=== PATIENT | male | born 1965 | race Caucasian/White ===

== ENCOUNTER 2023-06-25 11:32 | Emergency (ER) | payer MEDICARE, SELFPAY ==
[2023-06-25 12:15] LABS: Basophils # 0.1 10^3/uL (0.0-0.1); Basophils % 0.7 %; Eosinophils # 0.4 10^3/uL (0.0-0.8); Lymphocytes # 1.8 10^3/uL (0.8-4.8); Lymphocytes % 23.9 %; Mean Corpuscular HGB Conc 31.5 g/dL (30-55); Mean Corpuscular Hemoglobin 27.1 pg (27-33); Mean Platelet Volume 9.3 fL (7.4-10.4); Monocytes # 0.4 10^3/uL (0.2-0.9); Neutrophils # 4.74 10^3/uL (1.8-7.7); Neutrophils % 64.3 %; Nucleated Red Blood Cells % 0 %; Platelet Count 275 10^3/cmm (157-399); Red Blood Count 4.65 10^6/uL (3.85-5.65); Red Cell Distribution Width 14.4 % (12.1-15.1); White Blood Count 7.37 10^3/uL (3.29-11.43)
[2023-06-25 12:34] LABS: Alanine Aminotransferase 12 U/L (0-41); Albumin Level 4.1 g/dL (3.5-5.2); Alkaline Phosphatase 99 U/L (40-130); Anion Gap 13.6 (5-19); Aspartate Amino Transferase 18 U/L (0-40); Blood Urea Nitrogen 16 mg/dL (6-20); Carbon Dioxide 25 mmol/L (22-29); Chloride 103 mmol/L (98-107); Globulin 2.8 g/dL (1.3-4.6); Glomerular Filtration Rate 98.9 mL/min (90-130); Glucose 101 mg/dL (65-115); Osmolality Calculated 287 mOsm/kg (285-295); Potassium 3.6 mmol/L (3.5-5.1); Sodium 138 mmol/L (136-145); Total Bilirubin 0.2 mg/dL (0.15-1.2); Total Protein 6.9 g/dL (6.6-8.7)
== END 2023-06-25 12:07 | disposition left against medical advice (07) ==
PROVIDERS: Emergency Medicine; Emergency Provider Family Medicine; PCP Family Medicine
DX: Z53.21 Procedure and treatment not carried out due to patient leaving prior to being seen by health care provider (principal)
CPT/HCPCS: 36415; 80053; 85025; 99285

== ENCOUNTER → 2023-07-27 12:41 | Outpatient (BNVA) | payer MEDICARE, SELFPAY | PROVIDERS: PCP Family Medicine; Visit Provider Dermatology | DX: D48.5 Neoplasm of uncertain behavior of skin (principal); L57.0 Actinic keratosis; D69.2 Other nonthrombocytopenic purpura; L28.1 Prurigo nodularis; Z85.828 Personal history of other malignant neoplasm of skin | CPT/HCPCS: 11102; 17000; 99203 ==

== ENCOUNTER 2023-08-10 12:02 | Outpatient (CLI) | payer MEDICARE, SELFPAY ==
--- NOTE | 2023-08-10 12:06 | MR_ITS ---
WS: [id number] MRI BRAIN WITHOUT CONTRAST HISTORY: TIA COMPARISON: None available. TECHNIQUE: Diffusion imaging, multiplanar T1, T2 and FLAIR imaging obtained. No evidence for acute infarct or hemorrhage. Hernandez-white matter differentiation is normal. Minimal atrophy and small vessel ischemic disease. No large territory infarct. Mild bilateral hippoca mpal atrophy. Ventricles and extra-axial spaces are normal. No inferior displacement of cerebellar tonsils. The sella turcica and pituitary gland are unremarkabl e. Dural venous sinuses and lac vieux of Nath demonstrate no abnormality on this unenhanced studies. Paranasal sinuses: Heterogeneous mucoperiosteal thickening throughout the RIGHT maxillary sinus. Ther e is a small mucous retention cyst in the LEFT maxillary sinus. Small amount of mucus debris and rete ntion in the posterior nasopharynx. Mastoid air cells: Normal. Calvarium and scalp: Intact. IMPRESSION: 1. Normal diffusion imaging. No acute infarct. 2. Mild cerebral atrophy and small vessel ischemic disease. 3. Inspissated heterogeneous secretions in the RIGHT maxillary sinus.
--- NOTE | 2023-08-10 12:06 | USCV_ITS ---
José Mondragon Age: 58 Gender: M : 1965 Exam Date: 08/10/2023 13:10 Ordering Phys: To Osorio MD Technologist: MAEGAN [place] [facility] [place]: AIMEE BP: 136 / 85 HR: 68 Rhythm: Sinus Technical Quality: Adequate MEASUREMENTS (Male / Female) Normal Values 2D ECHO LV Diastolic Diameter PLAX 3.6 cm 4.2 - 5.9 / 3.9 - 5.3 cm IVS Diastolic Thickness 1.9 cm 0.6 - 1.0 / 0.6 - 0.9 cm IVS Systolic Thickness 2.9 cm LVPW Diastolic Thickness 2.6 cm 0.6 - 1.0 / 0.6 - 0.9 cm LVPW Systolic Thickness 3.4 cm LVOT Diameter 2.0 cm LV Ejection Fraction 2D Teich 80.8 % LV Ejection Fraction MOD 2C 59.9 % LV Ejection Fraction 2C AL 61.8 % LA Diameter 3.5 cm RA Systolic Volume 4C AL 36.6 ml RA Systolic Volume 4C MOD 35.8 ml Aorta at Sinotubular Diameter 2.6 cm IVC Diameter 1.4 cm M-MODE LA Ao Ratio MM 1.2 AV Cusp Separation MM 1.7 cm DOPPLER AV Peak Velocity 159.0 cm/s LVOT Peak Velocity 129.0 cm/s AV Area Cont Eq vti 2.6 cm squared AV Area Cont Eq pk 2.6 cm squared MV Peak Velocity 91.0 cm/s MV Area PHT 2.7 cm squared Mitral E to A Ratio 0.9 TR Peak Velocity 179.0 cm/s TR Peak Gradient 12.8 mmHg TR Mean Velocity 158.0 cm/s TR Mean Gradient 10.3 mmHg TR Velocity Time Integral 51.7 cm TV Peak E Velocity 43.0 cm/s Right Atrial Pressure 3.0 mmHg Pulmonary Artery Systolic Pressu 15.8 mmHg PV Peak Velocity 140.0 cm/s RV Ejection Time 0.3 s FINDINGS Left Ventricle Left ventricle is normal in size. LV systolic function is normal with EF of 60 to 65%. No regional wall motion abnormalities are seen. Moderate to severe left ventricular hypertrophy. Grade 1 diastolic dysfunction. Right Ventricle Normal in size and function Right Atrium Normal in size Left Atrium Normal in size Mitral Valve Structurally normal mitral valve. Mild mitral regurgitation. Aortic Valve Structurally normal aortic valve. No significant stenosis or regurgitation. Tricuspid Valve Insufficient TR jet to evaluate RVSP. Pulmonic Valve Not well-visualized. Pericardium Normal Aorta Normal in size IVC Appears to be normal. CONCLUSIONS LV systolic function is normal with EF of 60 to 65%. Moderate to severe left ventricular hypertrophy. Grade 1 diastolic dysfunction Mild mitral regurgitation. No comparison studies are available Konstantin Flalon MD (Electronically Signed) Final Date: 21 August 2023 19:45 S
== END 2023-08-10 12:03 | disposition home or self-care (01) ==
LOC: RAD 12:03
PROVIDERS: PCP Family Medicine; Visit Provider Family Medicine
DX: I63.9 Cerebral infarction, unspecified (principal); G31.9 Degenerative disease of nervous system, unspecified; I67.89 Other cerebrovascular disease; I51.7 Cardiomegaly
CPT/HCPCS: 70551; 93306

== ENCOUNTER → 2023-09-28 08:23 | Outpatient (BNVA) | payer MEDICARE, SELFPAY | PROVIDERS: PCP Family Medicine; Visit Provider Dermatology | DX: L21.8 Other seborrheic dermatitis (principal); L82.1 Other seborrheic keratosis; C44.629 Squamous cell carcinoma of skin of left upper limb, including shoulder; D48.5 Neoplasm of uncertain behavior of skin; L57.0 Actinic keratosis | CPT/HCPCS: 11102; 13132; 17000; 17311; 99214 ==

== ENCOUNTER 2023-10-19 04:36 | Emergency (ER) | payer MEDICARE, SELFPAY ==
[2023-10-19 04:41] VITALS: BP 177/81; PULSE 65; RESP 20; TEMP 36.8; O2SAT 97; BMI 25.8
--- NOTE | 2023-10-19 04:49 | ED_ITS ---
HPI - Extremity Problem General: Chief complaint: Extremity Injury, Upper Stated complaint: Rt Arm Injury Time Seen by Provider: 10/19/23 04:46 History of Present Illness: Patient presents to the ER with complaints of right arm/wrist pain. Patient states he got up and was sitting on the side of the bed when he fell back asleep sitting up and then fell over and fell off the bed. Patient has a large hematoma on his dorsal side of his ulnar area of his wrist. Patient has decreased range of motion secondary to pain. Patient has no other complaints at this time. There was no loss of consciousness or head head trauma. Review of Systems General: Reports: 10 or more systems reviewed and unremarkable except in HPI and below PFSH ED PFSH: Family History Other Congestive heart failure (CHF) Diabetes mellitus, type 2 Stroke Physical Exam Const: COMMON NORMALS: no acute distress, average body habitus, patient karoline ented x3, no limitations, healthy appearing, alert and well nourished HENMT: COMMON NORMALS: normocephalic, atraumatic, hearing grossly normal belkys aterally, external ears normal, Normal external nose present and moist oral mucous membranes HEAD & SCALP: normocephalic and atraumatic NOSE: Normal external nose present EXTERNAL EAR: Yes external ears normal Eye: COMMON NORMALS: Equal, round and reactive pupils present, EOMs intact bilaterally, conjunctivae normal and no scleral icterus CONJUNCTIVA: Yes conjunctivae normal PUPIL: Yes Equal, round and reactive pupils present Neck/C-Spine: COMMON NORMALS: no JVD Chest: COMMONS NORMALS: normal inspection of the chest and normal palpation of entire chest wall Resp: COMMON NORMALS: normal respiratory effort, No retractions, No use of accessory muscles and clear to auscultation bilaterally AUSCULTATION: clear to auscultation bilaterally Cardio: COMMON NORMALS: no JVD, regular rate, regular rhythm, S1 normal heart sound present, S2 normal heart sound present, No gallops present (Cardio), No clicks present (Cardio), No murmurs present (Cardio) and No rub (Cardio) RATE: regular rate RHYTHM: regular rhythm HEART SOUNDS: S1 normal heart sound present and S2 normal heart sound present GI: COMMON NORMALS: Normal to inspection, nondistended, normoactive bowel sounds present, Soft to palpation, non-tender, No hepatosplenomegaly present and no masses PALPATION: Yes Soft to palpation and Yes No hepatosplenomegaly present Extremity: NARRATIVE EXTREMITY EXAM: Decreased range of motion secondary to pain of right wrist joint, moderate hematoma on the dorsal distal aspect of the right forearm. Otherwise negative exam. Neuro: COMMON NORMALS: patient oriented x3 SENSORIUM/ORIENTATION: Yes alert Course Vital Signs: Vital signs: Vital Signs Temperature 98.2 F 10/19/23 06:42 Pulse Rate 70 10/19/23 06:42 Respiratory Rate 16 10/19/23 06:42 Blood Pressure 165/99 10/19/23 06:42 Pulse Oximetry 96 10/19/23 06:42 Oxygen Delivery Me thod Room Air 10/19/23 04:41 MDM - Extremity (Nontraumatic) Medical Decision Making Patient fell out of bed this morning and hurt his right wrist. He has a hematoma on it. X-ray was obtained which showed no acute abnormality. Patient be discharged home. Differential Diagnosis Unlikely herpes zoster, gout, cellulitis, superficial thrombophlebitis, deep venous thrombosis of upper extremity, lower extremity edema or deep vein thrombosis of lower extremity Medical Records I reviewed the patient's medical records. Lab Data I reviewed the patient's lab results. Radiology Impressions Wrist X-Ray 10/19/23 04:49 IMPRESSION: Healed fracture. No acute abnormality. All radiology interpretation(s) finalized by discharge Discharge Plan Discharge Patient Disposition: Home Clinical Impression: Contusion of dorsum of wrist Fall Qualifiers: Encounter type: initial encounter Qualified Code(s): W19.XXXA - Unspecified fall, initial encounter Condition: Stable Prescriptions: No Action aripiprazole 2 mg tablet 2 mg PO DAILY clonazepam 0.5 mg tablet 0.5 mg PO TID duloxetine 60 mg capsule,delayed release(DR/EC) 120 mg PO DAILY losartan 50 mg tablet 50 mg PO DAILY Discharge Orders: Discharge ED (Routine); Ordered 10/19/23 Ordered By: Marshall Garcia Referrals: To Osorio MD [Primary Care Provider] - 1 week Patient Instructions: Contusion in Adults (ED), Hematoma (ED) Coding Level of Care Code ED Tandem Mill Operator for Perla Olivas
--- NOTE | 2023-10-19 04:49 | XRR_ITS ---
PROCEDURE INFORMATION: Exam: XR Right Wrist Exam date and time: 10/19/2023 4:54 AM Age: 58 years old Clinical indication: Injury or trauma; Fall; Other: Pain; Prior surgery; Surgery date: 6+ months; Surgery type: Wrist; Additional info: Fall pain swelling TECHNIQUE: Imaging protocol: Radiologic exam of the right wrist. Views: 3 or more views. COMPARISON: No relevant prior studies available. FINDINGS: Bones/joints: ORIF of the distal radius in anatomic alignment. Intact hardware. No acute osseous or joint abnormality. Soft tissues: Normal. Other findings: . XR/XR wrist RT min 3V* [id number] IMPRESSION: Healed fracture. No acute abnormality.
[2023-10-19] MEDS: ketorolac 30 mg/mL INJ IM (05:56)
[2023-10-19 05:57] VITALS: BP 165/99; PULSE 70; RESP 16; O2SAT 96
[2023-10-19 06:42] VITALS: BP 165/99; PULSE 70; RESP 16; TEMP 36.8; O2SAT 96
== END 2023-10-19 06:15 | disposition home or self-care (01) ==
PROVIDERS: Emergency Provider Emergency Medicine; PCP Family Medicine
DX: S60.211A Contusion of right wrist, initial encounter (principal); Z79.899 Other long term (current) drug therapy; W06.XXXA Fall from bed, initial encounter
CPT/HCPCS: 73110; 96372; 99284; J1885

== ENCOUNTER → 2023-11-04 08:43 | Outpatient (BNVA) | payer MEDICARE, SELFPAY | PROVIDERS: PCP Family Medicine; Visit Provider Dermatology | DX: L26 Exfoliative dermatitis (principal); C44.629 Squamous cell carcinoma of skin of left upper limb, including shoulder; D69.2 Other nonthrombocytopenic purpura | CPT/HCPCS: 17262; 99214 ==

== ENCOUNTER 2023-12-30 12:29 | Outpatient (CLI) | payer MEDICARE, SELFPAY ==
--- NOTE | 2023-12-30 12:38 | USCV_ITS ---
José Mondragon Age: 58 Gender: M : 1965 Exam Date: 12/30/2023 12:58 Ordering Phys: To Osorio MD Technologist: CECIL [place] [facility] [place]: Swelling Risk Factors: Previous Vascular Surgery: RIGHT LEFT BP: 155.0 / 84.00 BP: 145.0/ 79.00 0 0 Waveform Velocity (cm/s) Velocity (cm/s) Waveform Triphasic 118.4 Iliac Prox 103.7 Triphasic Triphasic 118.4 Iliac Mid 94.4 Triphasic Triphasic 148.6 Iliac Distal 128.0 Triphasic Triphasic 188.0 WIRE SAWYER 101.0 Triphasic Triphasic 104.0 SFA Prox 148.0 Triphasic Triphasic 122.0 SFA Mid 153.0 Triphasic Triphasic SFA Dist Triphasic 113.0 120.0 Triphasic 53.0 POP 72.0 Triphasic Triphasic 46.0 BACK SIZER 48.0 Triphasic Triphasic 42.0 DPA 41.0 Triphasic 0.6 LILLIAM 0.7 FINDINGS Triphasic arterial Doppler waveforms bilaterally throughout the lower extremity. Near normal Doppler flow velocities Resting LILLIAM 0.6 on the right and 0.7 on the left CONCLUSIONS Abnormal resting LILLIAM may suggest moderate peripheral artery disease. However because of the normal arterial Doppler waveforms, need to consider extrinsic compression/vasospastic conditions. Consider CT angiogram to better evaluate the arteries, if clinically indicated No similar previous studies are available for comparison Dr Moni Norton MD [facility] (Electronically Signed) Final Date: 31 December 2023 12:23 S
== END 2023-12-30 12:30 | disposition home or self-care (01) ==
LOC: RAD 12:30
PROVIDERS: PCP Family Medicine; Visit Provider Family Medicine
DX: I73.9 Peripheral vascular disease, unspecified (principal); R22.40 Localized swelling, mass and lump, unspecified lower limb
CPT/HCPCS: 93925

== ENCOUNTER 2024-01-17 07:43 | Outpatient (CLI) | payer MEDICARE, SELFPAY ==
--- NOTE | 2024-01-17 07:46 | CTR_ITS ---
PROCEDURE INFORMATION: Exam: CTA Abdominal Aorta and Bilateral Lower Extremities (Run-off) With Contrast Exam date and time: 01/17/2024 8:23 AM Age: 58 years old Clinical indication: Other: Pvd; Prior surgery; Surgery date: 6+ months; Surgery type: Bilateral feet, RT knee, back TECHNIQUE: Imaging protocol: Computed tomographic angiography of the of the abdominal aorta, pelvis and bilateral lower extremities with contrast. 3D rendering (Not supervised by radiologist): MIP and/or 3D reconstructed images were created by the technologist. Radiation optimization: All CT scans at this facility use at least one of these dose optimization techniques: automated exposure control; mA and/or kV adjustment per patient size (includes targeted exams where dose is matched to clinical indication); or iterative reconstruction. Contrast material: OMNI 350; Contrast volume: 120 ml; Contrast route: INTRAVENOUS (IV); COMPARISON: No relevant prior studies available. RADIATION DOSE METRICS: Total DLP (mGy-cm): 1684 FINDINGS: Aorta: No aortic aneurysm. No aortic dissection. Celiac trunk and mesenteric arteries: No occlusion or significant stenosis. Renal arteries: No occlusion or significant stenosis. Right iliac arteries: No occlusion or significant stenosis. Right femoral/popliteal arteries: Short segmental occlusion of the right SFA with reconstitution at the adductor canal. . The right popliteal artery is partially obscured by artifact from this patient's knee prosthesis. Right infrapopliteal arteries: No occlusion or significant stenosis. Left iliac arteries: No occlusion or significant stenosis. Left femoral/popliteal arteries: No occlusion or significant stenosis. Left infrapopliteal arteries: No occlusion or significant stenosis. Liver: No mass. Gallbladder and biliary ducts: Unremarkable. No calcified stones. No ductal dilation. Pancreas: Unremarkable. No mass. No ductal dilation. Spleen: Normal. No splenomegaly. Adrenal glands: Normal. No mass. Kidneys and ureters: Normal. No mass. Stomach and bowel: Unremarkable. No obstruction. No mucosal thickening. Appendix: No evidence of appendicitis. Urinary bladder: Unremarkable. No mass. Reproductive: Unremarkable as visualized. Intraperitoneal space: Unremarkable. No free air. No significant fluid collection. Lymph nodes: No lymphadenopathy. Bones/joints: See Right femoral/popliteal arteries finding. Posterior lower lumbar fusion. Soft tissues: Unremarkable. CT/CT angio abd aorta runof [id number] IMPRESSION: Short segmental occlusion of the right SFA with prompt reconstitution.
[2024-01-17 08:19] LABS: Blood Urea Nitrogen 23 mg/dL (8-23); Glomerular Filtration Rate 61.8 mL/min (90-130)
[2024-01-17] MEDS: iohexol 350 mg/mL 500 mL Btl (per mL) IV (08:34)
== END 2024-01-17 07:44 | disposition home or self-care (01) ==
LOC: RAD 07:43
PROVIDERS: Radiology Diagnostic Radiology; PCP Family Medicine; Visit Provider Family Medicine
DX: I74.3 Embolism and thrombosis of arteries of the lower extremities (principal); I73.9 Peripheral vascular disease, unspecified; Z98.890 Other specified postprocedural states
CPT/HCPCS: 75635; 82565; 84520

== ENCOUNTER 2024-02-13 22:06 | Inpatient (IN) | payer MEDICARE, SELFPAY ==
--- NOTE | 2024-02-13 22:07 | ECG_ITS ---
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 Measurements Intervals [place] Rate: 85 P: 48 DE: 132 QRS: 67 QRSD: 114 T: 46 QT: 366 QTc: 436 Interpretive Statements SINUS RHYTHM WITH OCCASIONAL SUPRAVENTRICULAR PREMATURE COMPLEXES MODERATE INTRAVENTRICULAR CONDUCTION DELAY [110+ ms QRS DURATION] NONSPECIFIC T-WAVE ABNORMALITY No previous ECG available for comparison Electronically Signed On 02-13-2024 22:50:06 CDT by Moni Norton M.D. [email or web address]
[2024-02-13 22:08] VITALS: BP 134/78; PULSE 85; RESP 24; TEMP 36.6; O2SAT 96; BMI 28.7
--- NOTE | 2024-02-13 22:47 | XRR_ITS ---
PROCEDURE INFORMATION: Exam: XR Chest Exam date and time: 02/13/2024 11:46 PM Age: 58 years old Clinical indication: Shortness of breath; Patient HX: C/O SOB. History of copd. TECHNIQUE: Imaging protocol: Radiologic exam of the chest. Views: 1 view. COMPARISON: CT angio abd aorta runof [id number] 01/17/2024 8:23 AM FINDINGS: Lungs: Irregular opacities in the lung bases. Pleural spaces: Unremarkable. No pleural effusion. No pneumothorax. Heart/Mediastinum: Unremarkable. No cardiomegaly. Bones/joints: Reverse ball and socket right shoulder arthroplasty. XR/XR chest 1V portable [id number] IMPRESSION: Irregular opacities in the lung bases.
[2024-02-13 23:10] LABS: Basophils # 0.1 10^3/uL (0.0-0.1); Basophils % 0.5 %; Eosinophils # 0.3 10^3/uL (0.0-0.8); Hematocrit 44.1 % (37-53); Lymphocytes # 1.5 10^3/uL (0.8-4.8); Lymphocytes % 10.5 %; Mean Corpuscular HGB Conc 27.9 g/dL (30-55); Mean Corpuscular Hemoglobin 21.7 pg (27-33); Mean Corpuscular Volume 77.6 fl (82-101); Mean Platelet Volume 9.6 fL (7.4-10.4); Monocytes # 0.5 10^3/uL (0.2-0.9); Monocytes % 3.5 %; Neutrophils # 12.14 10^3/uL (1.8-7.7); Nucleated Red Blood Cells % 0 %; Platelet Count 274 10^3/cmm (157-399); Red Blood Count 5.68 10^6/uL (3.85-5.65); Red Cell Distribution Width 18.7 % (12.1-15.1); White Blood Count 14.62 10^3/uL (3.29-11.43)
[2024-02-13 23:26] LABS: Alanine Aminotransferase 30 U/L (0-41); Albumin Level 3.9 g/dL (3.5-5.2); Alkaline Phosphatase 73 U/L (40-130); Anion Gap 13.2 (5-19); Aspartate Amino Transferase 20 U/L (0-40); Blood Urea Nitrogen 17 mg/dL (8-23); Calcium 8.7 mg/dL (8.5-10.5); Carbon Dioxide 22 mmol/L (22-29); Chloride 103 mmol/L (98-107); Creatinine Clr Calc Pharmacy 88.9858; Globulin 2.8 g/dL (1.3-4.6); Glomerular Filtration Rate 76.2 mL/min (90-130); Glucose 123 mg/dL (65-115); Osmolality Calculated 281 mOsm/kg (285-295); Potassium 4.2 mmol/L (3.5-5.1); Sodium 134 mmol/L (136-145); Total Bilirubin 0.3 mg/dL (0.15-1.2); Total Protein 6.7 g/dL (6.6-8.7)
[2024-02-14] VITALS (52 sets, daily range): BP systolic 134–165; BP diastolic 72–113; PULSE 73–94; RESP 14–43; TEMP 36.4–36.6; O2SAT 88–97
[2024-02-14 00:30] LABS: Lactic Sepsis W/Reflex 1.4 mmol/L (0.5-2.2)
[2024-02-14 00:40] LABS: NT Pro B Type Natriuretic Pept 831 pg/mL (0-125)
[2024-02-14 00:42] LABS: Alcohol Level < 10 mg/dL (0-10)
[2024-02-14] MEDS: ipratropium-albuterol 3 mL Neb INHALATION ×3 (00:46→09:11)
[2024-02-14] MEDS: methylPREDNISolone sod succ 125 mg/2 mL INJ IVP (00:49)
--- NOTE | 2024-02-14 00:51 | ECG_ITS ---
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 Measurements Intervals [place] Rate: 81 P: 46 CO: 136 QRS: 64 QRSD: 135 T: 58 QT: 389 QTc: 454 Interpretive Statements SINUS RHYTHM WITH OCCASIONAL SUPRAVENTRICULAR PREMATURE COMPLEXES INTRAVENTRICULAR CONDUCTION DELAY [130+ ms QRS DURATION] Compared to ECG 02/13/2024 22:06:20 T-wave abnormality no longer present Electronically Signed On 02-15-2024 01:19:13 CDT by Moni Norton M.D. [id number]
[2024-02-14 00:54] LABS: Troponin(5th) Baseline 40 ng/L (0-15)
--- NOTE | 2024-02-14 00:54 | ED_ITS ---
HPI - SOB/Dyspnea 2 General: Chief Complaint: Shortness of Breath/Dyspnea Stated Complaint: SOB,COPD Time Seen by Provider: 02/13/24 23:50 History of Present Illness: HPI Narrative: 58-year-old male patient diagnosed with COPD recently he says. He presents with shortness of breath. Has been coughing. Had some clear sputum production. Does not know if he has had fever. He is not on oxygen at home. He is rather somnolent on interview. Related Data Home Medications Medication Instructions Recorded Confirmed aripiprazole 2 mg tablet 2 mg PO DAILY 02/23/23 02/23/23 clonazepam 0.5 mg tablet 0.5 mg PO TID 02/23/23 02/23/23 duloxetine 60 mg capsule,delayed 120 mg PO DAILY 02/23/23 02/23/23 release losartan 50 mg tablet 50 mg PO DAILY 02/23/23 02/23/23 Allergies Allergy/AdvReac Type Severity Reaction Status Date / Time Tetracyclines Allergy Unknown Verified 02/13/24 22:15 PFSH ED 2 PFSH: Family History Other Congestive heart failure (CHF) Diabetes mellitus, type 2 Stroke Physical Exam 2 Const: COMMON NORMALS: no acute distress GENERAL APPEARANCE: cooperative, lethargic (Mildly somnolent, answers questions appropriately.) and ill appearing (Mildly); not frail appearing ORIENTATION/CONSCIOUSNESS: Yes lethargic (Mildly somnolent, answers questions appropriately.) HENMT: COMMON NORMALS: normocephalic, atraumatic and Normal external nose present HEAD & SCALP: normocephalic and atraumatic FACE & SINUS: normal facial exam and face symmetric NOSE: Normal external nose present Eye: COMMON NORMALS: Equal, round and reactive pupils present and EOMs intact bilaterally PUPIL: Yes Equal, round and reactive pupils present Neck/C-Spine: GENERAL: Yes trachea midline Chest: CHEST: Yes Symmetrical chest wall rise Resp: COMMON NORMALS: normal respiratory effort, No retractions and clear to auscultation bilaterally AUSCULTATION: clear to auscultation bilaterally and diminished lung sounds Cardio: COMMON NORMALS: regular rate and regular rhythm RATE: regular rate RHYTHM: regular rhythm GI: COMMON NORMALS: Normal to inspection, nondistended, normoactive bowel sounds present Extremity: COMMON NORMALS: no pedal edema Neuro: ANAMIKA COMA SCALE: document GCS findings Olyphant coma scale eye opening: Spontaneous Anamika coma scale verbal response: Orientated Olyphant coma scale motor response: Obey commands Anamika coma scale total score: 15 S ENSORIUM/ORIENTATION: Yes lethargic (Mildly somnolent, answers questions appropriately.) SENSORY EXAM: Yes extremities (intact) Psych: COMMON NORMALS: speech normal SPEECH: Yes normal speech Skin: COMMON NORMALS: no rashes or lesions noted GENERAL SKIN EXAM: no rashes or lesions noted Course 2 Vital Signs: Vital signs: Vital Signs Temperature 97.9 F 02/13/24 22:08 Pulse Rate 91 02/14/24 02:50 Respiratory Rate 28 H 02/14/24 02:50 Blood Pressure 149/105 02/14/24 02:50 Pulse Oximetry 94 02/14/24 02:50 Oxygen Delivery Me thod Nasal Cannula 02/14/24 00:46 Oxygen Flow Rate 1 02/14/24 00:46 MDM - SOB/Dyspnea Medical Decision Making White blood cell count is 14.6. CRP is only 4. Respiratory panel is pending. Hemoglobin 12.3. EKG shows sinus rhythm with a occasional PACs. No acute ST wave changes present. Lactic acid is 1.4. Chest x-ray shows bilateral lower lobe infiltrates. Patient's oxygen is somewhat improved on 2.5 L. Respirations are 20, saturations 93%. Heart rate 75. With bilateral pneumonia and hypoxic respiratory failure, he will be admitted. Lab Data 02/13/24 23:04 02/13/24 23:04 Labs/Radiology: Radiology Impressions Chest X-Ray 02/13/24 22:47 IMPRESSION: Irregular opacities in the lung bases. Laboratory Results WBC 14.62 10^3/uL (3.29-11.43) H 02/13/24 23:04 RBC 5.68 10^6/uL (3.85-5.65) H 02/13/24 23:04 Hgb 12.30 g/dL (11.27-16.99) 02/13/24 23:04 Hct 44.1 % (37-53) 02/13/24 23:04 MCV 77.6 fl (82-101) L 02/13/24 23:04 MCH 21.7 pg (27-33) L 02/13/24 23:04 MCHC 27.9 g/dL (30-55) L 02/13/24 23:04 RDW 18.7 % (12.1-15.1) H 02/13/24 23:04 Plt Count 274 10^3/cmm (157-399) 02/13/24 23:04 MPV 9.6 fL (7.4-10.4) 02/13/24 23:04 Neut % (Auto) 83.0 % 02/13/24 23:04 Lymph % (Auto) 10.5 % 02/13/24 23:04 [place] % (Auto) 3.5 % 02/13/24 23:04 Eos % (Auto) 2.0 % 02/13/24 23:04 Baso % (Auto) 0.5 % 02/13/24 23:04 Neut # (Auto) 12.14 10^3/uL (1.8-7.7) H 02/13/24 23:04 Lymph # (Auto) 1.5 10^3/uL (0.8-4.8) 02/13/24 23:04 [place] # (Auto) 0.5 10^3/uL (0.2-0.9) 02/13/24 23:04 Eos # (Auto) 0.3 10^3/uL (0.0-0.8) 02/13/24 23:04 Baso # (Auto) 0.1 10^3/uL (0.0-0.1) 02/13/24 23:04 Nucleated RBC % (auto) 0 % 02/13/24 23:04 Nucleated RBCs # 0.0 /100WBC 02/13/24 23:04 Specimen Type Arterial 02/14/24 00:48 Sample Site Radial, right 02/14/24 00:48 ABG pH 7.35 (7.35-7.45) 02/14/24 00:48 ABG pCO2 43.1 mmHg (35-45) 02/14/24 00:48 ABG pO2 82.6 mmHg (80.0-100.0) 02/14/24 00:48 ABG HCO3 23.6 mmol/L (22-26) 02/14/24 00:48 ABG Base Excess -2.1 mmol/L (-2.0-2.0) L 02/14/24 00:48 Zac Test Pos 02/14/24 00:48 Hematocrit 38.4 % (42-52) L 02/14/24 00:48 O2 Delivery Device Nc 02/14/24 00:48 O2 Liters/Min 1.0 % 02/14/24 00:48 Packager Or Packer And Weigher ID [email or web address] 02/14/24 00:48 Sodium 134 mmol/L (136-145) L 02/13/24 23:04 Potassium 4.2 mmol/L (3.5-5.1) 02/13/24 23:04 Chloride 103 mmol/L (98-107) 02/13/24 23:04 Carbon Dioxide 22 mmol/L (22-29) 02/13/24 23:04 Anion Gap 13.2 (5-19) 02/13/24 23:04 BUN 17 mg/dL (8-23) 02/13/24 23:04 Creatinine 1.0 mg/dL (0.7-1.2) 02/13/24 23:04 GFR Calculation 76.2 mL/min (90-130) L 02/13/24 23:04 Glucose 123 mg/dL (65-115) H 02/13/24 23:04 Calculated Osmolality 281 mOsm/kg (285-295) L 02/13/24 23:04 Lactic Acid 1.4 mmol/L (0.5-2.2) 02/13/24 23:53 Calcium 8.7 mg/dL (8.5-10.5) 02/13/24 23:04 Total Bilirubin 0.3 mg/dL (0.15-1.2) 02/13/24 23:04 AST 20 U/L (0-40) 02/13/24 23:04 ALT 30 U/L (0-41) 02/13/24 23:04 Alkaline Phosphatase 73 U/L (40-130) 02/13/24 23:04 Troponin T Baseline 40 ng/L (0-15) H 02/13/24 23:53 C-Reactive Protein 4.0 mg/L (0.0-4.9) 02/13/24 23:53 NT-Pro-B Natriuret Pep 831 pg/mL (0-125) H 02/13/24 23:53 Total Protein 6.7 g/dL (6.6-8.7) 02/13/24 23:04 Albumin 3.9 g/dL (3.5-5.2) 02/13/24 23:04 Globulin 2.8 g/dL (1.3-4.6) 02/13/24 23:04 Ethyl Alcohol < 10 mg/dL (0-10) 02/13/24 23:53 Adenovirus (PCR) Not detected (NOT DETECT) 02/14/24 00:54 C. pneumoniae DNA (PCR) Not detected (NOT DETECT) 02/14/24 00:54 Coronavirus 229E (PCR) Not detected (NOT DETECT) 02/14/24 00:54 Human Metapneumovir PCR Not detected (NOT DETECT) 02/14/24 00:54 Influenza A (H1) PCR Not detected (NOT DETECT) 02/14/24 00:54 Influ A (H1/09) PCR Not detected (NOT DETECT) 02/14/24 00:54 Influenza A (H3) PCR Not detected (NOT DETECT) 02/14/24 00:54 Influenza Type A (PCR) Not detected (NOT DETECT) 02/14/24 00:54 Influenza Type B (PCR) Not detected (NOT DETECT) 02/14/24 00:54 M. pneumoniae (PCR) Not detected (NOT DETECT) 02/14/24 00:54 Parainfluenza 1 (PCR) Not detected (NOT DETECT) 02/14/24 00:54 Parainfluenza 2 (PCR) Not detected (NOT DETECT) 02/14/24 00:54 Parainfluenza 3 (PCR) Not detected (NOT DETECT) 02/14/24 00:54 Parainfluenza 4 (PCR) Not detected (NOT DETECT) 02/14/24 00:54 RSV Type A (PCR) Not detected (NOT DETECT) 02/14/24 00:54 RSV Type B (PCR) Not detected (NOT DETECT) 02/14/24 00:54 Entero/Rhino (PCR) Not detected (NOT DETECT) 02/14/24 00:54 SARS-CoV-2 (PCR) Not detected (NOT DETECT) 02/14/24 00:54 All radiology interpretation(s) finalized by discharge Discharge Plan Discharge Patient Disposition: Admitted As Inpatient Admit Provider: Estelita Pina Clinical Impression: Community acquired pneumonia, Acute hypoxemic respiratory failure Condition: Stable Coding Level of Care Code ED Drum Cleaner for Perla Olivas
[2024-02-14 00:59] LABS: ABG PCO2 43.1 mmHg (35-45); ABG PH Result 7.35 (7.35-7.45); Arterial Blood Gas Hematocrit 38.4 % (42-52); Base Excess ABG -2.1 mmol/L (-2.0-2.0); Blood Gas Allen Test Pos; Blood Gas Sample Site Radial, right; Blood Gas Sample Type Arterial; HCO3 ABG 23.6 mmol/L (22-26); Oxygen Device NC; PO2 ABG 82.6 mmHg (80.0-100.0)
[2024-02-14] MEDS: cefTRIAXone 1,000 mg SDV 1000 MG IVP (01:55)
[2024-02-14] MEDS: azithromycin 500 MG in sodium chloride 0.9% 250 ML 250 MG IV (02:00)
[2024-02-14 02:48] LABS: Adenovirus Not Detected (NOT DETECT); Chlamydia Pneumoniae Not Detected (NOT DETECT); Coronavirus 229E,HKU1,NL63,OC4 Not Detected (NOT DETECT); Human Metapneumovirus Not Detected (NOT DETECT); Human Rhinovirus/Enterovirus Not Detected (NOT DETECT); Influenza A Not Detected (NOT DETECT); Influenza A H1 Not Detected (NOT DETECT); Influenza A H1-2009 Not Detected (NOT DETECT); Influenza A H3 Not Detected (NOT DETECT); Influenza B Not Detected (NOT DETECT); Mycoplasma Pneumoniae Not Detected (NOT DETECT); Parainfluenza Virus Type 1 Not Detected (NOT DETECT); Parainfluenza Virus Type 2 Not Detected (NOT DETECT); Parainfluenza Virus Type 3 Not Detected (NOT DETECT); Parainfluenza Virus Type 4 Not Detected (NOT DETECT); Respiratory Syncytial Virus A Not Detected (NOT DETECT); Respiratory Syncytial Virus B Not Detected (NOT DETECT); SARS-COV-2 Not Detected (NOT DETECT)
[2024-02-14 03:11] LABS: Troponin 5 2HR 39.48 ng/L (0-15)
[2024-02-14 03:15] LABS: Troponin 5 2HR Delta -0.52 ABS# (0-10)
--- NOTE | 2024-02-14 05:16 | PM.HP ---
Providers/Chief Complaint Admitting Physician: Estelita Pina MD Primary Care Provider: To Osorio MD Chief Complaint: SOB,COPD History of Present Illness José Mondragon is a 58 year old male with a past medical history of COPD, history of chronic smoking since age 13, history of CAD status post stents several years ago presenting to the emergency room today with chief complaints of short of breath. Patient states that he has been experiencing increasing shortness of breath over the past 2 months now. He feels increasingly dyspneic with minimal activity such as walking around in the house. Last night it got much worse necessitating visit to the emergency room. He was noted to have bilateral wheezing on exam. He has had an increased cough over the past 2 to 3 days. He does not typically wear oxygen at home but is requiring 2 to 3 L supplemental O2 today. He states that he also has a history of sleep apnea but does not like wearing his CPAP. States he does not get much sleep as a result of the same only sleeping about 1 to 2 hours every night. He does take a clonazepam at nighttime. Upon initial arrival patient was noted to be somnolent ABG did not show any gross hypercapnia, he did improve during the course of his stay here. At the time of this assessment he is alert awake oriented, able to have a full conversation. He does have bilateral wheezing, tachypneic with respiratory rate of 32/min but able to finish sentences. Review of Systems General: Reports: 10 or more systems reviewed and unremarkable except in HPI and below Const: Denies: fever(s), chills or body aches Eyes: Denies: change in vision, blurry vision or photophobia ENMT: Reports: hoarseness; Denies: throat pain, enlarged tonsils, odynophagia or nasal congestion Card: Denies: chest pain, palpitations, irregular heart rhythm, edema, swelling of feet/ankles, lightheadedness, pre-syncope, dyspnea on exertion or orthopnea Resp: Denies: dyspnea, productive cough, non-productive cough, wheezing, stridor, pain on inspiration, change in phlegm color, hemoptysis or chest congestion GI: Denies: abdominal pain, nausea, vomiting, hematemesis, coffee ground emesis, dysphagia, heartburn, diarrhea, constipation, GI cramping, change in stool character, hematochezia or melena : Denies: flank pain, dysuria, urinary frequency, urinary urgency, urinary hesitancy or hematuria Musc: Denies: neck pain, back pain, extremity pain, joint swelling, joint warmth or deformity Neuro: Denies: headache(s), numbness in extremities, weakness in extremities, sensory changes, difficulty walking, frequent falls, dizziness, vertigo, behavioral changes, Slurred speech present or seizure-like activity Psych: Denies: anxiety, depression, suicidal ideation or homicidal ideation Endo: Denies: polyuria, polydipsia, tired all the time, cold intolerance or hot flashes Fei/Lymph: Denies: easy bruising or easy bleeding Medications/Allergies Home Medications Medication Instructions Recorded Confirmed Last Taken Type aripiprazole 2 mg tablet 2 mg PO DAILY 02/23/23 02/23/23 Unknown History clonazepam 0.5 mg tablet 0.5 mg PO TID 02/23/23 02/23/23 Unknown History duloxetine 60 mg capsule,delayed 120 mg PO DAILY 02/23/23 02/23/23 Unknown History release losartan 50 mg tablet 50 mg PO DAILY 02/23/23 02/23/23 Unknown History Allergies Allergy/AdvReac Type Severity Reaction Status Date / Time Tetracyclines Allergy Unknown Verified 02/13/24 22:15 PFSH Acute PFSH: Family History Other Congestive heart failure (CHF) Diabetes mellitus, type 2 Stroke Vitals/I&O/Wt Last Vital Signs Temp 97.9 F 02/13/24 22:08 Pulse 81 02/14/24 04:15 Resp 23 H 02/14/24 04:15 BP 137/108 02/14/24 04:15 Pulse Ox 92 02/14/24 04:15 O2 Del Method Nasal Cannula 02/14/24 00:46 O2 Flow Rate 1 02/14/24 00:46 02/13/24 02/13/24 02/14/24 14:59 22:59 06:59 Intake Total 250 / 250 Balance 250 / 250 Weight last 48 hrs Weight 90.718 kg Physical Exam Narrative: General: No acute distress, AO x3 HEENT: PERRLA, pupils bilaterally equal and reactive, pallors not present Chest: Wheezing to auscultation bilaterally all areas tachypneic with respiratory rate of 32 CVS: S1-S2 regular, no murmurs, no tachycardia, no gallops, no rubs Abdomen: Soft, nontender, no organomegaly, bowel sounds present Neuro: No focal deficits, no facial deformity, AO x3, power 5/5 in all limbs Extremities: Left lower extremity 1+ pitting edema, no edema on the right leg. Data 02/13/24 23:04 02/13/24 23:04 Micro: Microbiology 02/14/24 00:52 Blood Culture - Preliminary Blood SPECIMEN COLLECTED 02/14/24 00:48 Blood Culture - Preliminary Blood SPECIMEN COLLECTED A&P Assessment and plan (1) Community acquired pneumonia: Irregular opacities in the lung bases. start ceftriaxone 1 g IV every 24 hours, azithromycin 500 mg p.o. daily for atypical coverage. Sputum Gram stain and culture MRSA nasal screen Respiratory viral panel negative. (2) COPD exacerbation: Clinical picture overall compatible with acute on chronic COPD exacerbation likely as a result of pneumonia Start methylprednisolone 40 mg IV every 8 hours duoneb q6h, budesonide q12h scheduled inhalation As needed Tessalon Perles for cough. Supplemental O2 to keep saturation 90%. Screening D-dimer, if elevated would evaluate for PE with CTA. Patient has diffuse bilateral wheezing on exam, currently tachypneic with respiratory rate of 32, would benefit from inpatient management with IV steroids and scheduled nebulizations. (3) Left leg swelling: Left leg swelling, patient states he noticed this a few weeks ago. Uncertain of the cause. Denies any past surgeries. No signs of cellulitis. Will check lower extremity Doppler to evaluate for DVT. Echocardiogram taken in August 2023 showed an LV systolic function of 60 to 65%, moderate to severe left ventricular hypertrophy with grade 1 diastolic dysfunction. Potentially may have acute on chronic diastolic CHF exacerbation, trial of Lasix 20 mg IV x 1 now. Check BNP. Recently underwent CTA with runoff which showed short segmental occlusion of the right SFA with prompt reconstitution. Apparently he was referred for vascular intervention however only 40% occlusion was found per his description. Plan DVT ppx: lovenox 40 Full code Attestations Medical Necessity Statement*: > 2 midnight stay is anticipated Coding Level of Care Code Acute Code for [facility] Fwd Diagnoses Community acquired pneumonia J18.9 COPD exacerbation J44.1 Left leg swelling M79.89
[2024-02-14] MEDS: methylPREDNISolone sod succ 125 mg/2 mL INJ 60 MG IVP (05:38)
[2024-02-14] MEDS: enoxaparin 40 mg/0.4 mL Syringe SUBCUT (05:38)
[2024-02-14 05:44] LABS: D Dimer 0.34 ug/mLFEU (0-0.59)
[2024-02-14 05:46] LABS: Amphetamines Screen Urine Negative (Negative); Barbiturates Screen Urine Negative (Negative); Benzodiazepines Screen Urine Negative (Negative); Cocaine Screen Urine Negative (Negative); Opiate Screen Urine Negative (Negative); PCP Screen Urine Negative (Negative); THC Screen Urine Positive (Negative)
--- NOTE | 2024-02-14 06:07 | PC.NURSE ---
At 0530 this nurse went to assess patient. This nurse found the patient sitting on the side of the bed, tripoding, and gasping for air. Dr Pina notified. Attempted to reach RT to administer breathing treatment, RT unavailable. Dr. Pina came to bedside and administer DuoNeb nebulizer treatment and budesonide nebulizer treatment. Patient improved after treatment, now resting in bed comfortably on 3L O2.
--- NOTE | 2024-02-14 06:20 | ECG_ITS ---
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 Measurements Intervals [place] Rate: 81 P: 57 [place]: 147 QRS: 63 QRSD: 116 T: 58 QT: 377 QTc: 440 Interpretive Statements SINUS RHYTHM WITH SINUS ARRHYTHMIA POSSIBLE LEFT ATRIAL ENLARGEMENT [-0.1mV P-WAVE IN V1/V2] MODERATE INTRAVENTRICULAR CONDUCTION DELAY [110+ ms QRS DURATION] NONSPECIFIC ST & T-WAVE ABNORMALITY Compared to ECG 02/14/2024 00:51:18 T-wave abnormality now present Electronically Signed On 02-15-2024 01:27:09 CDT by Moni Norton M.D. [id number]
[2024-02-14] MEDS: budesonide 0.5 mg/2 mL Neb INHALATION (06:26)
[2024-02-14] MEDS: azithromycin 250 mg Tablet 500 MG PO (08:30)
[2024-02-14] MEDS: pantoprazole DR 40 mg Tablet PO (08:30)
[2024-02-14] MEDS: FUROsemide 10 mg/mL SDV 2mL 20 MG IVP (08:30)
[2024-02-14] MEDS: nicotine 14 mg Patch 1 PATCH TRANSDERMA (08:31)
--- NOTE | 2024-02-14 08:50 | ECG_ITS ---
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 Measurements Intervals [place] Rate: 82 P: 58 [place]: 151 QRS: 47 QRSD: 108 T: 85 QT: 372 QTc: 436 Interpretive Statements SINUS RHYTHM WITH OCCASIONAL SUPRAVENTRICULAR PREMATURE COMPLEXES POSSIBLE LEFT ATRIAL ENLARGEMENT [-0.1mV P-WAVE IN V1/V2] NONSPECIFIC ST & T-WAVE ABNORMALITY Compared to ECG 02/14/2024 06:49:00 Sinus arrhythmia no longer present Intraventricular conduction delay no longer present T-wave abnormality still present Electronically Signed On 02-15-2024 01:31:19 CDT by Moni Norton M.D. [id number]
[2024-02-14 10:38] LABS: Troponin 5 6HR 36.88 ng/L (0-15)
[2024-02-14 10:47] LABS: Troponin 5 6HR Delta -3.12 ng/L (0-12)
--- NOTE | 2024-02-14 13:11 | PC.NURSE ---
Patient wanted to leave as he is the only caregiver for his and is ill. This nurse contacted Dr. Swanson. Dr. Swanson did not want to discharge patient. Patient decided to leave against medical advice. This nurse educated patient about the need to stay for medications and that the doctor did not feel patient was well enough to discharge at this time. This nurse removed IV and patient signed AMA paperwork.
--- NOTE | 2024-02-14 13:52 | P.DS_ITS ---
Discharge Providers Date of Admission: 02/14/24 02:22 Date of Discharge: February 14, 2024 Attending Provider at Admission: Estelita Pina MD Attending Provider at Discharge: Maury Swanson MD Primary Care Provider: To Osorio MD Diagnoses at Discharge Discharge Diagnosis (1) Community acquired pneumonia: Status: Acute (2) COPD exacerbation: Status: Acute (3) Left leg swelling: Status: Acute Reason for Visit Reason for Visit: SOB,COPD Hospital Course Hospital Course This is a 58-year-old male with a past medical history of COPD, who presents [facility] for shortness of breath Patient presented to [facility] for shortness of breath, COPD exacerbation, admitted for broad-spectrum antibiotic therapy, steroid therapy, c linically monitored, requiring 3 L. Patient was seen the morning of 02/14/2024, requiring 3 L, continue to have wheezing, productive cough, no evidence of respiratory distress, discussed continue antibiotic therapy, steroid therapy, following up venous ultrasound and cardiac echocardiogram ordered. Patient left AGAINST MEDICAL ADVICE, I conveyed through nursing staff to the patient the morbidity and mortality of leaving the hospital AGAINST MEDICAL ADVICE. Nonetheless, patient left AGAINST MEDICAL ADVICE, I have sent him 5 days of Augmentin, prednisone, albuterol to the pharmacy Physical Exam Const: COMMON NORMALS: no acute distress and patient oriented x3 Resp: COMMON NORMALS: normal respiratory effort, No retractions and No use of accessory muscles AUSCULTATION: crackles and wheezes Cardio: COMMON NORMALS: regular rate, regular rhythm, S1 normal heart sound present and S2 normal heart sound present RATE: regular rate RHYTHM: regular rhythm HEART SOUNDS: S1 normal heart sound present and S2 normal heart sound present GI: COMMON NORMALS: Normal to inspection, nondistended, normoactive bowel sounds present and non-tender Extremity: COMMON NORMALS: no pedal edema Neuro: COMMON NORMALS: patient oriented x3 Psych: COMMON NORMALS: mental status grossly normal Discharge Data Studies Completed and Pending Completed Studies During Hospitalization Category Date Time Status XR chest 1V portable [id number] Stat Exams 02/13/24 22:47 Completed Pending at discharge Category Date Time Status Blood Culture Stat Lab 02/14/24 00:52 [place] [id number] Routine Ultrasound 02/14/24 06:32 Ordered CV. echo complete* [id number] Routine Ultrasound 02/14/24 08:49 Ordered Radiology Impressions Chest X-Ray 02/13/24 22:47 IMPRESSION: Irregular opacities in the lung bases. Laboratory Results WBC 14.62 10^3/uL (3.29-11.43) H 02/13/24 23:04 RBC 5.68 10^6/uL (3.85-5.65) H 02/13/24 23:04 Hgb 12.30 g/dL (11.27-16.99) 02/13/24 23:04 Hct 44.1 % (37-53) 02/13/24 23:04 MCV 77.6 fl (82-101) L 02/13/24 23:04 MCH 21.7 pg (27-33) L 02/13/24 23:04 MCHC 27.9 g/dL (30-55) L 02/13/24 23:04 RDW 18.7 % (12.1-15.1) H 02/13/24 23:04 Plt Count 274 10^3/cmm (157-399) 02/13/24 23:04 MPV 9.6 fL (7.4-10.4) 02/13/24 23:04 Neut % (Auto) 83.0 % 02/13/24 23:04 Lymph % (Auto) 10.5 % 02/13/24 23:04 [place] % (Auto) 3.5 % 02/13/24 23:04 Eos % (Auto) 2.0 % 02/13/24 23:04 Baso % (Auto) 0.5 % 02/13/24 23:04 Neut # (Auto) 12.14 10^3/uL (1.8-7.7) H 02/13/24 23:04 Lymph # (Auto) 1.5 10^3/uL (0.8-4.8) 02/13/24 23:04 [place] # (Auto) 0.5 10^3/uL (0.2-0.9) 02/13/24 23:04 Eos # (Auto) 0.3 10^3/uL (0.0-0.8) 02/13/24 23:04 Baso # (Auto) 0.1 10^3/uL (0.0-0.1) 02/13/24 23:04 Nucleated RBC % (auto) 0 % 02/13/24 23:04 Nucleated RBCs # 0.0 /100WBC 02/13/24 23:04 D-Dimer 0.34 ug/mLFEU (0-0.59) 02/13/24 23:53 Specimen Type Arterial 02/14/24 00:48 Sample Site Radial, right 02/14/24 00:48 ABG pH 7.35 (7.35-7.45) 02/14/24 00:48 ABG pCO2 43.1 mmHg (35-45) 02/14/24 00:48 ABG pO2 82.6 mmHg (80.0-100.0) 02/14/24 00:48 ABG HCO3 23.6 mmol/L (22-26) 02/14/24 00:48 ABG Base Excess -2.1 mmol/L (-2.0-2.0) L 02/14/24 00:48 Zac Test Pos 02/14/24 00:48 Hematocrit 38.4 % (42-52) L 02/14/24 00:48 O2 Delivery Device Nc 02/14/24 00:48 O2 Liters/Min 1.0 % 02/14/24 00:48 Bookkeeper ID [email or web address] 02/14/24 00:48 Sodium 134 mmol/L (136-145) L 02/13/24 23:04 Potassium 4.2 mmol/L (3.5-5.1) 02/13/24 23:04 Chloride 103 mmol/L (98-107) 02/13/24 23:04 Carbon Dioxide 22 mmol/L (22-29) 02/13/24 23:04 Anion Gap 13.2 (5-19) 02/13/24 23:04 BUN 17 mg/dL (8-23) 02/13/24 23:04 Creatinine 1.0 mg/dL (0.7-1.2) 02/13/24 23:04 GFR Calculation 76.2 mL/min (90-130) L 02/13/24 23:04 Glucose 123 mg/dL (65-115) H 02/13/24 23:04 Calculated Osmolality 281 mOsm/kg (285-295) L 02/13/24 23:04 Lactic Acid 1.4 mmol/L (0.5-2.2) 02/13/24 23:53 Calcium 8.7 mg/dL (8.5-10.5) 02/13/24 23:04 Total Bilirubin 0.3 mg/dL (0.15-1.2) 02/13/24 23:04 AST 20 U/L (0-40) 02/13/24 23:04 ALT 30 U/L (0-41) 02/13/24 23:04 Alkaline Phosphatase 73 U/L (40-130) 02/13/24 23:04 Troponin T Baseline 40 ng/L (0-15) H 02/13/24 23:53 Troponin T 120 Minute 39.48 ng/L (0-15) H 02/14/24 02:44 Delta Troponin T -0.52 ABS# (0-10) L 02/14/24 02:44 Troponin T Hi Sens 6Hr 36.88 ng/L (0-15) H 02/14/24 09:43 Troponin T Hi Sens 6Hr Delta -3.12 ng/L (0-12) L 02/14/24 09:43 C-Reactive Protein 4.0 mg/L (0.0-4.9) 02/13/24 23:53 NT-Pro-B Natriuret Pep 831 pg/mL (0-125) H 02/13/24 23:53 Total Protein 6.7 g/dL (6.6-8.7) 02/13/24 23:04 Albumin 3.9 g/dL (3.5-5.2) 02/13/24 23:04 Globulin 2.8 g/dL (1.3-4.6) 02/13/24 23:04 Urine Opiates Screen Negative ng/mL (Negative) 02/14/24 04:49 Ur Barbiturates Screen Negative ng/mL (Negative) 02/14/24 04:49 Ur Phencyclidine Scrn Negative ng/mL (Negative) 02/14/24 04:49 Ur Amphetamines Screen Negative ng/mL (Negative) 02/14/24 04:49 U Benzodiazepines Scrn Negative ng/mL (Negative) 02/14/24 04:49 Urine Cocaine Screen Negative ng/mL (Negative) 02/14/24 04:49 U Marijuana (THC) Screen Positive ng/mL (Negative) H 02/14/24 04:49 Ethyl Alcohol < 10 mg/dL (0-10) 02/13/24 23:53 Adenovirus (PCR) Not detected (NOT DETECT) 02/14/24 00:54 C. pneumoniae DNA (PCR) Not detected (NOT DETECT) 02/14/24 00:54 Coronavirus 229E (PCR) Not detected (NOT DETECT) 02/14/24 00:54 Human Metapneumovir PCR Not detected (NOT DETECT) 02/14/24 00:54 Influenza A (H1) PCR Not detected (NOT DETECT) 02/14/24 00:54 Influ A (H1/09) PCR Not detected (NOT DETECT) 02/14/24 00:54 Influenza A (H3) PCR Not detected (NOT DETECT) 02/14/24 00:54 Influenza Type A (PCR) Not detected (NOT DETECT) 02/14/24 00:54 Influenza Type B (PCR) Not detected (NOT DETECT) 02/14/24 00:54 M. pneumoniae (PCR) Not detected (NOT DETECT) 02/14/24 00:54 Parainfluenza 1 (PCR) Not detected (NOT DETECT) 02/14/24 00:54 Parainfluenza 2 (PCR) Not detected (NOT DETECT) 02/14/24 00:54 Parainfluenza 3 (PCR) Not detected (NOT DETECT) 02/14/24 00:54 Parainfluenza 4 (PCR) Not detected (NOT DETECT) 02/14/24 00:54 RSV Type A (PCR) Not detected (NOT DETECT) 02/14/24 00:54 RSV Type B (PCR) Not detected (NOT DETECT) 02/14/24 00:54 Entero/Rhino (PCR) Not detected (NOT DETECT) 02/14/24 00:54 SARS-CoV-2 (PCR) Not detected (NOT DETECT) 02/14/24 00:54 Vitals Last Vital Signs Temp 97.9 F 02/14/24 13:14 Pulse 91 02/14/24 13:14 Resp 16 02/14/24 13:14 BP 140/83 02/14/24 13:14 Pulse Ox 93 02/14/24 13:14 O2 Del Method Nasal Cannula 02/14/24 11:16 O2 Flow Rate 3 02/14/24 11:16 Discharge Plan Discharge Patient Disposition: Left Against Medical Advice Condition: Stable Prescriptions: New prednisone 20 mg tablet 20 mg PO BID 5 Days Qty: 10 0RF amoxicillin-pot clavulanate 875-125 mg tablet 1 tab PO BID 5 Days Qty: 10 0RF Continued duloxetine 60 mg capsule,delayed release(DR/EC) 120 mg PO DAILY losartan 50 mg tablet 50 mg PO DAILY ketoconazole 2 % shampoo See Rx Instructions .ROUTE .COMPLEX Rx Instructions: Lather onto scalp 2 -3 times weekly . allow to sit 5 mintes before rinsing clonazepam 1 mg tablet 1 mg PO QID aripiprazole 5 mg tablet 5 mg PO QPM sildenafil (pulm.hypertension) 20 mg tablet 20 mg PO DAILY PRN (Reason: Htpertention ) vitamin K2 40 mcg Tablet 40 mcg PO DAILY Repatha SureClick 140 mg/mL pen injector 140 mg SUBCUT Q14D Changed albuterol sulfate 90 mcg/actuation HFA aerosol inhaler 1 puff INHALATION Q4H PRN (Reason: Shortness Of Breath) Qty: 8.5 0RF Referrals: To Osorio MD [Primary Care Provider] - 02/18/24 9:45 am Patient Instructions: Opioid Safety, Pain Management Discharge Attestations Time Spent in Discharge Care*: greater than 30 min Quality Metrics Clinical Quality Measures [ No reported AMI, CVA or VTE this stay] Coding Level of Care Code 42245 Total time (in minutes) for Discharge: 45 Diagnoses Community acquired pneumonia J18.9 COPD exacerbation J44.1 Left leg swelling M79.89
== END 2024-02-14 13:10 | disposition left against medical advice (07) | DRG 193 ==
LOC: ER 02-14 02:03 → MEDSURG 02-14 02:54
PROVIDERS: Admitting Provider Student in an Organized Health Care Education/Training Program; Emergency Provider Emergency Medicine; PCP Family Medicine; Visit Provider Family Medicine
DX: J18.9 Pneumonia, unspecified organism (principal); I50.33 Acute on chronic diastolic (congestive) heart failure; J44.0 Chronic obstructive pulmonary disease with (acute) lower respiratory infection; J44.1 Chronic obstructive pulmonary disease with (acute) exacerbation; I25.10 Atherosclerotic heart disease of native coronary artery without angina pectoris; M79.89 Other specified soft tissue disorders; E11.9 Type 2 diabetes mellitus without complications; I70.201 Unspecified atherosclerosis of native arteries of extremities, right leg; Z86.73 Personal history of transient ischemic attack (TIA), and cerebral infarction without residual deficits; Z95.5 Presence of coronary angioplasty implant and graft
CPT/HCPCS: 36415; 36600; 71045; 80053; 80306; 80307; 82803; 83605; 83880; 84484; 85025; 85378; 86140; 87040; 87486; 87581; 87633; 93005; 94640; 96372; J0456; J0696; J1650; J1940; J2919; J7050; J7626; Q0144

== ENCOUNTER → 2024-04-13 08:09 | Outpatient (BNVA) | payer MEDICARE, SELFPAY | PROVIDERS: PCP Family Medicine; Visit Provider Nurse Practitioner Family | DX: L26 Exfoliative dermatitis (principal); D69.2 Other nonthrombocytopenic purpura; L21.8 Other seborrheic dermatitis; Z08 Encounter for follow-up examination after completed treatment for malignant neoplasm; Z85.828 Personal history of other malignant neoplasm of skin; L57.0 Actinic keratosis | CPT/HCPCS: 17000; 99214 ==

== ENCOUNTER 2024-06-30 04:02 | Emergency (ER) | payer OTHER, SELFPAY ==
[2024-06-30 04:16] VITALS: BP 84/68; PULSE 60; RESP 20; TEMP 37.1; O2SAT 99; BMI 28.7
[2024-06-30 04:21] VITALS: BP 84/68; PULSE 60; RESP 20; O2SAT 99
--- NOTE | 2024-06-30 04:34 | W.ED.WOUNDLC ---
HPI - Wound/Laceration General: Chief Complaint: Wound/Laceration Stated Complaint: Fell and cut leg Time Seen by Provider: 06/30/24 04:33 History of Present Illness: Patient presents to the ER with laceration inside his right thigh. He said he was walking tripped over a propane bottle in the top of the bottle get the inside of his leg. Bleeding is controlled. Patient is unsure about his tetanus shot. Patient is on no anticoagulants. Related Data Home Medications ?Medication ?Instructions ?Recorded ?Confirmed duloxetine 60 mg capsule,delayed 120 mg PO DAILY 02/23/23 02/14/24 release losartan 50 mg tablet 50 mg PO DAILY 02/23/23 02/14/24 aripiprazole 5 mg tablet 5 mg PO QPM 02/14/24 02/14/24 clonazepam 1 mg tablet 1 mg PO QID 02/14/24 02/14/24 evolocumab 140 mg/mL subcutaneous 140 mg SUBCUT Q14D 02/14/24 02/14/24 pen injector ([place]) ketoconazole 2 % shampoo See Rx Instructions .Route .COMPLEX 02/14/24 02/14/24 sildenafil (pulm.hypertension) 20 20 mg PO DAILY PRN Htpertention 02/14/24 02/14/24 mg tablet vitamin K2 40 mcg tablet 40 mcg PO DAILY 02/14/24 02/14/24 Previous Rx's ?Medication ?Instructions ?Recorded albuterol sulfate 90 mcg/actuation 1 puff inhalation Q4H PRN 02/14/24 aerosol inhaler Shortness Of Breath #8.5 grams Allergies Allergy/AdvReac Type Severity Reaction Status Date / Time Tetracyclines Allergy Unknown Verified 02/13/24 22:15 Review of Systems General: Reports: 10 or more systems reviewed and unremarkable except in HPI and below PFSH ED PFSH: Family History Other Congestive heart failure (CHF) Diabetes mellitus, type 2 Stroke Social History Smoking and tobacco/nicotine status: current every day tobacco/nicotine user Physical Exam Const: COMMON NORMALS: no acute distress, average body habitus, patient oriented x3, no limitations, healthy appearing, alert and well nourished Neck/C-Spine: COMMON NORMALS: no JVD Chest: COMMONS NORMALS: normal inspection of the chest and normal palpation of entire chest wall Resp: COMMON NORMALS: normal respiratory effort, No retractions, No use of accessory muscles and clear to auscultation bilaterally AUSCULTATION: clear to auscultation bilaterally Cardio: COMMON NORMALS: no JVD, regular rate, regular rhythm, S1 normal heart sound present, S2 normal heart sound present, No gallops present (Cardio), No clicks present (Cardio), No murmurs present (Cardio) and No rub (Cardio) RATE: regular rate RHYTHM: regular rhythm HEART SOUNDS: S1 normal heart sound present and S2 normal heart sound present GI: COMMON NORMALS: Normal to inspection, nondistended, normoactive bowel sounds present, Soft to palpation, non-tender, No hepatosplenomegaly present and no masses PALPATION: Yes Soft to palpation and Yes No hepatosplenomegaly present Extremity: NARRATIVE EXTREMITY EXAM: Approximately a 4 cm laceration full-thickness irregular to the right medial thigh bleeding is controlled. Patient's neurovascularly intact distally to the wound. Wound is clean. Neuro: COMMON NORMALS: patient oriented x3 SENSORIUM/ORIENTATION: Yes alert Procedures Laceration Laceration 1: Site: lower extremity (Right medial thigh) Side (If applicable): right Size (cm): 4.0 Description: linear and irregular Depth: simple, single layer Local Anesthetic: lidocaine 1% Amount of anesthesia used (mL): 5 Pre-repair: wound explored (Cleansed with Betadine) and deep structures intact Skin layer closed with: nylon Size (cm): 4-0 Number of sutures: 5 Technique: simple, interrupted Course Vital Signs: Vital signs: Vital Signs Temperature 98.7 F 06/30/24 04:16 Pulse Rate 60 06/30/24 04:21 Respiratory Rate 20 H 06/30/24 04:21 Blood Pressure 84/68 06/30/24 04:21 Pulse Oximetry 99 06/30/24 04:21 MDM - Wound/Laceration Medical Decision Making Laceration was cleansed with Betadine sewn up with 4-0 nylon with no complications. Patient's tetanus shot was updated. Patient was instructed to follow-up with his PCP in 7 to 10 days for reevaluation and suture removal. Medical Records I reviewed the patient's medical records. Lab Data I reviewed the patient's lab results. All radiology interpretation(s) finalized by discharge Discharge Plan Discharge Patient Disposition: Home Clinical Impression: Laceration Condition: Stable Prescriptions: No Action duloxetine 60 mg capsule,delayed release(DR/EC) 120 mg PO DAILY losartan 50 mg tablet 50 mg PO DAILY ketoconazole 2 % shampoo See Rx Instructions .ROUTE .COMPLEX Rx Instructions: Lather onto scalp 2 -3 times weekly . allow to sit 5 mintes before rinsing clonazepam 1 mg tablet 1 mg PO QID aripiprazole 5 mg tablet 5 mg PO QPM sildenafil (pulm.hypertension) 20 mg tablet 20 mg PO DAILY PRN (Reason: Htpertention ) vitamin K2 40 mcg Tablet 40 mcg PO DAILY Repatha SureClick 140 mg/mL pen injector 140 mg SUBCUT Q14D albuterol sulfate 90 mcg/actuation HFA aerosol inhaler 1 puff INHALATION Q4H PRN (Reason: Shortness Of Breath) Qty: 8.5 0RF Discharge Orders: Discharge ED (Routine); Ordered 06/30/24 Ordered By: Marshall Garcia Referrals: Lazaro Montelongo MD [Primary Care Provider] - 7-10 days Patient Instructions: Laceration (ED) Activity Restrictions/Additional Instructions: Please keep the laceration clean dry and covered as needed. Please apply a thin layer of triple antibiotic ointment on it once a day. Please do not soak it or go swimming or hot tubbing. You may wash it with soap and water and pat it dry. Please follow-up with your family physician within 7 to 10 days for reevaluation and possible suture removal. Print Language: Swedish Coding Level of Care Code ED Learning Administrator for Perla Olivas
[2024-06-30] MEDS: tetanus-dipt-pertussis 0.5 mL SDV IM (04:40)
[2024-06-30 04:53] VITALS: BP 139/70; PULSE 73; O2SAT 96
== END 2024-06-30 04:55 | disposition home or self-care (01) ==
PROVIDERS: Emergency Provider Emergency Medicine; PCP Family Medicine
DX: S71.111A Laceration without foreign body, right thigh, initial encounter (principal); Z72.0 Tobacco use; E11.9 Type 2 diabetes mellitus without complications; I50.9 Heart failure, unspecified; X58.XXXA Exposure to other specified factors, initial encounter
CPT/HCPCS: 12002; 90471; 90715; 99283

== ENCOUNTER 2025-01-04 09:37 | Outpatient (CLI) | payer OTHER, SELFPAY ==
[2025-01-04 11:28] LABS: Hematocrit 41.6 % (37-53); Hemoglobin 13.50 g/dL (11.27-16.99); Mean Corpuscular HGB Conc 32.5 g/dL (30-55); Mean Corpuscular Hemoglobin 29.2 pg (27-33); Mean Corpuscular Volume 89.8 fl (82-101); Nucleated Red Blood Cells % 0 %; Platelet Count 238 10^3/cmm (157-399); Red Blood Count 4.63 10^6/uL (3.85-5.65); White Blood Count 8.48 10^3/uL (3.29-11.43)
[2025-01-04 11:48] LABS: Alanine Aminotransferase 13 U/L (0-41); Albumin Level 4.0 g/dL (3.5-5.2); Alkaline Phosphatase 92 U/L (40-130); Anion Gap 14.7 (5-19); Aspartate Amino Transferase 12 U/L (0-40); Blood Urea Nitrogen 15 mg/dL (8-23); Calcium 9.0 mg/dL (8.5-10.5); Carbon Dioxide 26 mmol/L (22-29); Chloride 102 mmol/L (98-107); Globulin 2.7 g/dL (1.3-4.6); Glucose 109 mg/dL (65-115); Iron 79 ug/dL (59-158); Osmolality Calculated 289 mOsm/kg (285-295); Potassium 3.7 mmol/L (3.5-5.1); Sodium 139 mmol/L (136-145); Total Iron Binding Capacity 328 mcg/dl; Total Protein 6.7 g/dL (6.6-8.7); Unsaturated Iron Binding 249 ug/dL (112-347)
[2025-01-05 09:51] LABS: Free T4 Free Thyroxine 1.27 ng/dL (0.82-1.77); Thyroid Stimulating Hormone 0.90 uIU/mL (0.27-4.20)
== END 2025-01-04 09:38 | disposition home or self-care (01) ==
PROVIDERS: PCP Family Medicine; Visit Provider Nurse Practitioner Family
DX: L29.89 Other pruritus (principal)
CPT/HCPCS: 36415; 80053; 83540; 83550; 84439; 84443; 85025; 86803

== ENCOUNTER → 2025-02-23 14:46 | Outpatient (BNVA) | payer OTHER, SELFPAY | PROVIDERS: PCP Family Medicine; Visit Provider Nurse Practitioner Family | DX: L29.89 Other pruritus (principal); L57.8 Other skin changes due to chronic exposure to nonionizing radiation; L81.4 Other melanin hyperpigmentation; D22.39 Melanocytic nevi of other parts of face; L82.1 Other seborrheic keratosis; L57.0 Actinic keratosis | CPT/HCPCS: 17000; 99213 ==

== ENCOUNTER → 2025-04-09 15:47 | Outpatient (BNVA) | payer MEDICARE, SELFPAY | PROVIDERS: PCP Family Medicine; Referring Provider Family Medicine; Visit Provider Internal Medicine Cardiovascular Disease | DX: I65.23 Occlusion and stenosis of bilateral carotid arteries (principal); I10 Essential (primary) hypertension; I25.10 Atherosclerotic heart disease of native coronary artery without angina pectoris; I49.3 Ventricular premature depolarization; Z95.5 Presence of coronary angioplasty implant and graft; F17.200 Nicotine dependence, unspecified, uncomplicated; I25.2 Old myocardial infarction; R07.9 Chest pain, unspecified; R09.89 Other specified symptoms and signs involving the circulatory and respiratory systems | CPT/HCPCS: 93005; 99204; 99214 ==

== ENCOUNTER → 2025-04-10 09:58 | Outpatient (BNVA) | payer MEDICARE, SELFPAY | PROVIDERS: PCP Family Medicine; Visit Provider Nurse Practitioner Family | DX: L29.89 Other pruritus (principal); L57.8 Other skin changes due to chronic exposure to nonionizing radiation; L81.4 Other melanin hyperpigmentation; L82.1 Other seborrheic keratosis; D22.39 Melanocytic nevi of other parts of face; Z08 Encounter for follow-up examination after completed treatment for malignant neoplasm; Z85.828 Personal history of other malignant neoplasm of skin; L82.0 Inflamed seborrheic keratosis; L53.8 Other specified erythematous conditions; Z78.9 Other specified health status; L57.0 Actinic keratosis | CPT/HCPCS: 17000; 17110; 99213 ==

== ENCOUNTER 2025-04-14 05:10 | Emergency (ER) | payer MEDICARE, SELFPAY ==
[2025-04-14 05:22] VITALS: BP 148/80; PULSE 88; RESP 16; TEMP 37.1; O2SAT 94; BMI 27.2
--- NOTE | 2025-04-14 05:40 | W.ED.EXTPRO ---
HPI - Extremity Problem General: Chief complaint: Extremity Injury, Upper Stated complaint: shoulder cramped locked up 12 hrs+ Time Seen by Provider: 04/14/25 05:30 History of Present Illness: 59-year-old male with 13 hours of left-sided neck and shoulder pain. He says that he gets spasms from time to time. They usually go away in a couple of hours. This 1 is lasted most of yesterday and all night. It is beginning to improve on its own now. He is taking Tylenol and ibuprofen without much relief. He is not short of breath. He has not had a fever. No headache associated. No trauma. Related Data Home Medications ?Medication ?Instructions ?Recorded ?Confirmed duloxetine 60 mg capsule,delayed 120 mg PO DAILY 02/23/23 04/09/25 release losartan 50 mg tablet 50 mg PO DAILY 02/23/23 04/09/25 aripiprazole 5 mg tablet 5 mg PO QPM 02/14/24 04/09/25 clonazepam 1 mg tablet 1 mg PO QID 02/14/24 04/09/25 evolocumab 140 mg/mL subcutaneous 140 mg SUBCUT Q14D 02/14/24 04/09/25 pen injector ([place]) ketoconazole 2 % shampoo See Rx Instructions .Route .COMPLEX 02/14/24 04/09/25 sildenafil (pulm.hypertension) 20 20 mg PO DAILY PRN Htpertention 02/14/24 04/09/25 mg tablet vitamin K2 40 mcg tablet 40 mcg PO DAILY 02/14/24 04/09/25 Previous Rx's ?Medication ?Instructions ?Recorded albuterol sulfate 90 mcg/actuation 1 puff inhalation Q4H PRN 02/14/24 aerosol inhaler Shortness Of Breath #8.5 grams carvedilol 6.25 mg tablet 6.25 mg PO BID #180 tabs 04/09/25 tizanidine 4 mg capsule 4 mg PO TID PRN muscle spasticity 04/14/25 #10 caps Allergies Allergy/AdvReac Type Severity Reaction Status Date / Time Tetracyclines Allergy Unknown Verified 04/09/25 15:39 FOR[facility]LY [facility] ED PFS: Medical History (Updated 04/14/25 @ 05:44 by Satya Ayala DO) PTSD (post-traumatic stress disorder) Hx of myocardial infarction Essential hypertension Bipolar disorder Surgical History History of knee replacement History of fusion of cervical spine Hx of appendectomy Family History Other Congestive heart failure (CHF) Diabetes mellitus, type 2 Stroke Social History Smoking and tobacco/nicotine status: current every day tobacco/nicotine user Physical Exam Const: GENERAL APPEARANCE: lethargic (Mildly sleepy); not anxious and not ill appearing ORIENTATION/CONSCIOUSNESS: Yes lethargic (Mildly sleepy) Neck/C-Spine: OTHER: Exam of the cervical spine reveals no midline tenderness. There is significant left-sided paraspinal musculature tenderness, down to the superior medial angle of the scapula. Some tenderness along the trapezius. There is no midline thoracic tenderness. Chest: CHEST: Yes Symmetrical chest wall rise Resp: COMMON NORMALS: normal respiratory effort and clear to auscultation bilaterally AUSCULTATION: clear to auscultation bilaterally Cardio: COMMON NORMALS: regular rate and regular rhythm RATE: regular rate RHYTHM: regular rhythm Neuro: SENSORIUM/ORIENTATION: Yes lethargic (Mildly sleepy) Course Vital Signs: Vital signs: Vital Signs Temperature 98.7 F 04/14/25 05:22 Pulse Rate 88 04/14/25 05:22 Respiratory Rate 17 04/14/25 05:48 Blood Pressure 148/80 04/14/25 05:22 Pulse Oximetry 95 04/14/25 05:48 MDM - Extremity (Nontraumatic) Medical Decision Making Palpable muscular spasm and tenderness. Reproducible pain. He is given Norflex and morphine here. Some relief. He will be discharged on tizanidine. Symptoms indicative of spasmodic torticollis. Stable for discharge. No radiology studies performed this visit Discharge Plan Discharge Patient Disposition: Home Clinical Impression: Spastic torticollis Condition: Stable Prescriptions: New tizanidine 4 mg capsule 4 mg PO TID PRN (Reason: muscle spasticity) Qty: 10 0RF No Action duloxetine 60 mg capsule,delayed release(DR/EC) 120 mg PO DAILY losartan 50 mg tablet 50 mg PO DAILY carvedilol 6.25 mg tablet 6.25 mg PO BID Qty: 180 3RF Rx Instructions: must administer with a meal/food ketoconazole 2 % shampoo See Rx Instructions .ROUTE .COMPLEX Rx Instructions: Lather onto scalp 2 -3 times weekly . allow to sit 5 mintes before rinsing clonazepam 1 mg tablet 1 mg PO QID aripiprazole 5 mg tablet 5 mg PO QPM sildenafil (pulm.hypertension) 20 mg tablet 20 mg PO DAILY PRN (Reason: Htpertention ) vitamin K2 40 mcg Tablet 40 mcg PO DAILY Repatha SureClick 140 mg/mL pen injector 140 mg SUBCUT Q14D albuterol sulfate 90 mcg/actuation HFA aerosol inhaler 1 puff INHALATION Q4H PRN (Reason: Shortness Of Breath) Qty: 8.5 0RF Discharge Orders: Discharge ED (Routine); Ordered 04/14/25 Ordered By: Satya Ayala Referrals: Lazaro Montelongo MD [Primary Care Provider, Family Practice] Patient Instructions: Spasmodic Torticollis (ED), Opioid Safety, Pain Management, Patient Portal & Leandra Instructions Print Language: Haitian Coding Level of Care Code ED Cans Vacuum Tester for Perla Olivas
[2025-04-14 05:48] VITALS: RESP 17; O2SAT 95
[2025-04-14] MEDS: morphine 4 mg/mL SDV 1 mL IM (05:48)
[2025-04-14] MEDS: orphenadrine 30 mg/mL Inj 2 mL 60 MG IM (05:48)
== END 2025-04-14 06:37 | disposition home or self-care (01) ==
PROVIDERS: Emergency Provider Emergency Medicine; PCP Family Medicine
DX: G24.3 Spasmodic torticollis (principal); Z72.0 Tobacco use; I10 Essential (primary) hypertension
CPT/HCPCS: 96372; 99284; J2270; J2360; J8540

== ENCOUNTER 2025-04-17 12:53 | Outpatient (CLI) | payer MEDICARE, SELFPAY ==
--- NOTE | 2025-04-17 13:15 | USCV_ITS ---
Giancarlo José Age: 59 Gender: M : 1965 Exam Date: 04/17/2025 13:23 Ordering Phys: Bhavik Leach MD ([email or web address]) Technologist: CECIL Exam Location: [facility] [place] Indication: bruit Risk Factors: Previous Vascular Surgery: Right Brachial BP: / Left Brachial BP: / Right Left Velocity (cm/s) Spectral Plaque Velocity (cm/s) Spectral Plaque Syst/Diast Broadening Syst/Diast Broadening 96.00/ 22.20 Prox CCA 111.40/ 26.60 56.30/ 16.20 Mid CCA 81.40 / 22.80 53.80/ 14.00 Distal CCA 90.50 / 26.60 101.30/31.50 Prox ICA 214.10/ 49.80 132.00/27.60 Mid ICA 81.00 / 18.90 92.80/ 26.10 Distal ICA 49.00 / 14.80 56.90 ECA 278.10 1.90 ICA/CCA 2.40 Antegrade Vertebral Antegrade 63.00/ 10.40 cm/s 49.90/ 12.20 cm/s Tri Subclavian Tri 76.20 117.1 0 FINDINGS Comparison: none available. Mixture of calcified and noncalcified plaque in the bifurcations. Antegrade vertebral arteries. Mild stenosis left ECA. CONCLUSIONS Left ICA stenosis 50-69%. Right ICA stenosis < 50%. Moderate calcified plaque in the bifurcations. Dr. Pascale Robertson DO (Electronically Signed) Final Date: 17 April 2025 15:22 S
== END 2025-04-17 12:54 | disposition home or self-care (01) ==
LOC: RAD 12:54
PROVIDERS: PCP Family Medicine; Visit Provider Internal Medicine Cardiovascular Disease
DX: R09.89 Other specified symptoms and signs involving the circulatory and respiratory systems (principal); I65.22 Occlusion and stenosis of left carotid artery; I70.8 Atherosclerosis of other arteries
CPT/HCPCS: 93880